=== PATIENT | female | born 1990 | race Two or more races ===

== ENCOUNTER 2023-05-28 18:02 | Emergency (ER) | payer OTHER ==
[~2023-05-28] VITALS: Ht 162.6 cm; Wt 80.7 kg
[2023-05-28 19:27] LABS: HEMATOCRIT 33.6 % (36.0-45.00); HEMOGLOBIN 11.4 g/dL (12.0-15.00); MEAN CELL VOLUME 80.3 fL (80.00-100.00); MEAN CORPUSCULAR HEMOGLOBIN 27.3 pg (27.00-32.0); PLATELET COUNT 233 K/uL (150-450); RED BLOOD COUNT 4.18 M/uL (4.00-6.00); RED CELL DISTRIBUTION WIDTH 13.9 % (11.5-14.5)
[2023-05-28 20:42] LABS: PH,URINE 6.5 (5.0-8.0); URINE APPEARANCE Clear; URINE BILIRRUBIN Negative (NEGATIVE); URINE BLOOD Negative; URINE COLOR Yellow; URINE GLUCOSE Negative (NEGATIVE); URINE LEUKOCYTE Negative; URINE NITRATE Negative; URINE PROTEIN Negative (NEGATIVE); URINE UROBILINOGEN 0.2 E.U./dl
[2023-05-28 20:45] LABS: URINE BACTERIA 41.5 uL (0.0-1933); URINE EPITHELIAL CELLS 2.6 uL (0.0-38.8); URINE RBC 11.7 uL (0.0-20.8)
== END 2023-05-28 23:02 | disposition home or self-care (01) ==
LOC: ER 18:04
PROVIDERS: Emergency Medicine
DX: O20.8 Other hemorrhage in early pregnancy (principal); Z3A.01 Less than 8 weeks gestation of pregnancy

== ENCOUNTER 2023-06-12 08:34 | Emergency (ER) | payer OTHER ==
[~2023-06-12] VITALS: Ht 160 cm; Wt 78.5 kg
[2023-06-12] MEDS ORDERED: 0.9 % SODIUM CHLORIDE 1,000 ML IV STA (09:40)
[2023-06-12] MEDS ORDERED: RINGERS SOLUTION,LACTATED 1,000 ML IV SCH (10:00)
[2023-06-12 10:04] LABS: HEMATOCRIT 35.2 % (36.0-45.00); HEMOGLOBIN 11.9 g/dL (12.0-15.00); MEAN CORPUSCULAR HEMOGLOBIN 27.6 pg (27.00-32.0); MEAN CORPUSCULAR HGB CONC 33.7 g/dl (32.0-36.0); PLATELET COUNT 219 K/uL (150-450)
[2023-06-12 10:36] LABS: CALCIUM 9.1 mg/dL (8.5-10.1); CREATININE SERUM 0.62 mg/dL (0.55-1.02); GFR 110.19; POTASSIUM 3.58 mEq/L (3.5-5.1)
[2023-06-12 10:49] LABS: PH,URINE 7.5 (5.0-8.0); URINE APPEARANCE Cloudy; URINE BILIRRUBIN Negative (NEGATIVE); URINE BLOOD Negative; URINE COLOR Yellow; URINE GLUCOSE Negative (NEGATIVE); URINE LEUKOCYTE Negative; URINE NITRATE Negative; URINE PROTEIN Negative (NEGATIVE); URINE UROBILINOGEN 0.2 E.U./dl
[2023-06-12 10:53] LABS: URINE BACTERIA 88.1 uL (0.0-1933); URINE EPITHELIAL CELLS 2.9 uL (0.0-38.8); URINE RBC 8.4 uL (0.0-20.8); URINE WBC 2.7 uL (0.0-23.2)
[2023-06-12 11:19] LABS: INR 0.96; PARTIAL THROMBOPLASTIN TIME 27.1 SECONDS (22.0-34.0); PROTHROMBIN TIME 10.1 SECONDS (9.0-11.5)
== END 2023-06-12 13:06 | disposition home or self-care (01) ==
LOC: ER 08:34
PROVIDERS: General Practice
DX: O20.8 Other hemorrhage in early pregnancy (principal); Z3A.09 9 weeks gestation of pregnancy

== ENCOUNTER → 2023-07-02 | Outpatient (CLI) | payer OTHER | END | disposition home or self-care (01) | LOC: PRENATAL 11:20 | PROVIDERS: ATTEND Obstetrics & Gynecology Maternal & Fetal Medicine | DX: O36.80X0 Pregnancy with inconclusive fetal viability, not applicable or unspecified (principal); O09.529 Supervision of elderly multigravida, unspecified trimester; O34.219 Maternal care for unspecified type scar from previous cesarean delivery; Z36.82 Encounter for antenatal screening for nuchal translucency; Z3A.12 12 weeks gestation of pregnancy ==

== ENCOUNTER 2023-09-29 14:10 | Outpatient (CLI) | payer OTHER ==
[~2023-09-29] VITALS: Ht 160 cm; Wt 81.2 kg
[2023-09-29] MEDS ORDERED: RINGERS SOLUTION,LACTATED 1,000 ML IV SCH (14:15)
[2023-09-29] MEDS ORDERED: PRENATAL TABLE1 EAC4 PO (14:19)
[2023-09-29 14:42] LABS: PH,URINE 6.5 (5.0-8.0); URINE APPEARANCE Clear; URINE BILIRRUBIN Negative (NEGATIVE); URINE BLOOD Negative; URINE COLOR Yellow; URINE GLUCOSE Negative (NEGATIVE); URINE LEUKOCYTE Negative; URINE NITRATE Negative; URINE PROTEIN Negative (NEGATIVE)
[2023-09-29 14:46] LABS: HEMATOCRIT 30.5 % (36.0-45.00); HEMOGLOBIN 10.4 g/dL (12.0-15.00); MEAN CELL VOLUME 81.3 fL (80.00-100.00); MEAN CORPUSCULAR HEMOGLOBIN 27.7 pg (27.00-32.0); MEAN CORPUSCULAR HGB CONC 34.1 g/dl (32.0-36.0); PLATELET COUNT 203 K/uL (150-450); RED BLOOD COUNT 3.76 M/uL (4.00-6.00); RED CELL DISTRIBUTION WIDTH 14.9 % (11.5-14.5); URINE BACTERIA 50.3 uL (0.0-1933); URINE EPITHELIAL CELLS 10.3 uL (0.0-38.8); URINE RBC 2.2 uL (0.0-20.8); URINE WBC 9.5 uL (0.0-23.2)
== END 2023-09-30 14:17 | disposition home or self-care (01) ==
LOC: OBS/DEL 14:10
PROVIDERS: Obstetrics & Gynecology; ATTEND Obstetrics & Gynecology
DX: O46.92 Antepartum hemorrhage, unspecified, second trimester (principal); Z3A.25 25 weeks gestation of pregnancy; O26.849 Uterine size-date discrepancy, unspecified trimester; O09.529 Supervision of elderly multigravida, unspecified trimester; O60.00 Preterm labor without delivery, unspecified trimester; O26.859 Spotting complicating pregnancy, unspecified trimester

== ENCOUNTER 2023-11-21 10:33 | Outpatient (CLI) | payer OTHER ==
[~2023-11-21 10:33] MED LIST: PRENATAL TABLE1 EAC4 PO
== END 2023-11-21 10:34 | disposition home or self-care (01) ==
LOC: PRENATAL 10:33
PROVIDERS: ATTEND Obstetrics & Gynecology Maternal & Fetal Medicine
DX: O26.843 Uterine size-date discrepancy, third trimester (principal); O36.8130 Decreased fetal movements, third trimester, not applicable or unspecified; O09.523 Supervision of elderly multigravida, third trimester; O34.219 Maternal care for unspecified type scar from previous cesarean delivery; O99.019 Anemia complicating pregnancy, unspecified trimester; Z3A.32 32 weeks gestation of pregnancy

== ENCOUNTER 2023-12-20 20:50 | Outpatient (CLI) | payer OTHER ==
[2023-12-20 21:33] LABS: HEMATOCRIT 30.5 % (36.0-45.00); HEMOGLOBIN 10.3 g/dL (12.0-15.00); MEAN CELL VOLUME 80.4 fL (80.00-100.00); MEAN CORPUSCULAR HEMOGLOBIN 27.2 pg (27.00-32.0); MEAN CORPUSCULAR HGB CONC 33.8 g/dl (32.0-36.0); PLATELET COUNT 189 K/uL (150-450); RED BLOOD COUNT 3.79 M/uL (4.00-6.00); RED CELL DISTRIBUTION WIDTH 16.2 % (11.5-14.5)
[2023-12-20 21:34] LABS: URINE APPEARANCE Clear; URINE BACTERIA 124.6 uL (0.0-1933); URINE BILIRRUBIN Negative (NEGATIVE); URINE BLOOD NHT; URINE COLOR Yellow; URINE EPITHELIAL CELLS 7.3 uL (0.0-38.8); URINE GLUCOSE Negative (NEGATIVE); URINE KETONE Negative (NEGATIVE); URINE LEUKOCYTE Negative; URINE NITRATE Negative; URINE PROTEIN Negative (NEGATIVE); URINE RBC 49.6 uL (0.0-20.8); URINE UROBILINOGEN 0.2 E.U./dl; URINE WBC 6.6 uL (0.0-23.2)
[2023-12-20 21:56] LABS: INR < 0.93; PARTIAL THROMBOPLASTIN TIME 24.4 SECONDS (22.0-34.0)
[2023-12-20] MEDS ORDERED: RINGERS SOLUTION,LACTATED 1,000 ML IV SCH (23:15)
[2023-12-20] MEDS ORDERED: IRON 100 PLUS1 EACH PO (23:37)
[2023-12-20] MEDS ORDERED: AMPICILLIN SODIU1 G1 IV (23:37)
== END 2023-12-21 09:28 | disposition home or self-care (01) ==
LOC: OBS/DEL 20:50
PROVIDERS: Obstetrics & Gynecology; ATTEND Obstetrics & Gynecology
DX: O98.813 Other maternal infectious and parasitic diseases complicating pregnancy, third trimester (principal); Z3A.36 36 weeks gestation of pregnancy

== ENCOUNTER 2023-12-25 09:05 | Inpatient (IN) | payer OTHER ==
[~2023-12-25] VITALS: Ht 160 cm; Wt 2.7 kg
[~2023-12-25 09:05] MED LIST changes: +AMPICILLIN SODIU1 G1 IV; +IRON 100 PLUS1 EACH PO
[2023-12-25 10:34] LABS: URINE APPEARANCE Clear; URINE BILIRRUBIN Negative (NEGATIVE); URINE BLOOD NHT; URINE COLOR Yellow; URINE GLUCOSE Negative (NEGATIVE); URINE KETONE Negative (NEGATIVE); URINE LEUKOCYTE Negative; URINE NITRATE Negative; URINE PROTEIN Negative (NEGATIVE); URINE UROBILINOGEN 0.2 E.U./dl
[2023-12-25 10:44] LABS: URINE BACTERIA 12.5 uL (0.0-1933); URINE EPITHELIAL CELLS 11.5 uL (0.0-38.8); URINE RBC 45.3 uL (0.0-20.8); URINE WBC 2.3 uL (0.0-23.2)
[2023-12-25 10:53] LABS: HEMATOCRIT 33.5 % (36.0-45.00); HEMOGLOBIN 11.1 g/dL (12.0-15.00); MEAN CELL VOLUME 81.6 fL (80.00-100.00); MEAN CORPUSCULAR HEMOGLOBIN 27.1 pg (27.00-32.0); MEAN CORPUSCULAR HGB CONC 33.2 g/dl (32.0-36.0); PLATELET COUNT 183 K/uL (150-450); RED CELL DISTRIBUTION WIDTH 16.1 % (11.5-14.5)
[2023-12-25 11:26] LABS: INR < 0.93; PARTIAL THROMBOPLASTIN TIME 25.1 SECONDS (22.0-34.0)
[2023-12-25 11:29] LABS: CALCIUM 8.9 mg/dL (8.5-10.1); CREATININE SERUM 0.49 mg/dL (0.55-1.02); GFR 143.72; POTASSIUM 4.49 mEq/L (3.5-5.1)
[2024-01-03 10:36] VITALS: BP 98/61
[2024-01-03] MEDS ORDERED: RINGERS SOLUTION,LACTATED 1,000 ML IV SCH ×2 (11:15→21:30)
[2024-01-03 11:56] LABS: HEMATOCRIT 32.2 % (36.0-45.00); HEMOGLOBIN 10.9 g/dL (12.0-15.00); MEAN CELL VOLUME 81.1 fL (80.00-100.00); MEAN CORPUSCULAR HEMOGLOBIN 27.4 pg (27.00-32.0); MEAN CORPUSCULAR HGB CONC 33.7 g/dl (32.0-36.0); PLATELET COUNT 175 K/uL (150-450); RED BLOOD COUNT 3.97 M/uL (4.00-6.00); RED CELL DISTRIBUTION WIDTH 16.4 % (11.5-14.5)
[2024-01-03 11:58] LABS: PH,URINE 6.5 (5.0-8.0); URINE APPEARANCE Clear; URINE BILIRRUBIN Negative (NEGATIVE); URINE BLOOD Negative; URINE COLOR Yellow; URINE GLUCOSE Negative (NEGATIVE); URINE KETONE Negative (NEGATIVE); URINE LEUKOCYTE Negative; URINE NITRATE Negative; URINE PROTEIN Negative (NEGATIVE); URINE UROBILINOGEN 0.2 E.U./dl
[2024-01-03 12:00] LABS: URINE BACTERIA 1481.7 uL (0.0-1933); URINE EPITHELIAL CELLS 21.6 uL (0.0-38.8); URINE RBC 3.2 uL (0.0-20.8); URINE WBC 6.7 uL (0.0-23.2)
[2024-01-03 12:20] LABS: INR < 0.93; PARTIAL THROMBOPLASTIN TIME 24.9 SECONDS (22.0-34.0)
[2024-01-03 12:26] LABS: ALBUMIN 2.6 gm/dL (3.4-5.0); BILIRUBIN TOTAL 0.34 mg/dL (0.3-1.2); CALCIUM 8.8 mg/dL (8.5-10.1); CREATININE SERUM 0.49 mg/dL (0.55-1.02); GFR 143.72; GLOBULINA 3.7 G/DL (2.4-3.5); POTASSIUM 4.03 mEq/L (3.5-5.1); TOTAL PROTEIN 6.3 gm/dL (6.4-8.2)
[2024-01-03 16:55] VITALS: BP 105/69
[2024-01-03] MEDS ORDERED: ERYTHROMYCIN BASE OPHT 1GM EACH TUBE OP ONE (17:35)
[2024-01-03] MEDS ORDERED: OXYTOCIN 10 UNITS/ML VIAL ONE ×2 (17:35→21:21)
[2024-01-03] MEDS ORDERED: CEFAZOLIN SODIUM 1,000 MG VIAL ONE (19:39)
[2024-01-03] MEDS ORDERED: KETOROLAC TROMETHAMINE 30 MG VIAL ONE (20:54)
[2024-01-03] MEDS ORDERED: MORPHINE SULFATE 4 MG/ML VIAL IV PRN (21:15)
[2024-01-03] MEDS ORDERED: OXYTOCIN 1,000 ML IV SCH (21:30)
[2024-01-03] MEDS ORDERED: KETOROLAC TROMETHAMINE 30 MG VIAL IU ONE (21:30)
[2024-01-03 22:10] VITALS: BP 99/67
[2024-01-03 23:08] LABS: HEMATOCRIT 32.5 % (36.0-45.00); HEMOGLOBIN 11.1 g/dL (12.0-15.00); MEAN CELL VOLUME 80.3 fL (80.00-100.00); MEAN CORPUSCULAR HEMOGLOBIN 27.4 pg (27.00-32.0); MEAN CORPUSCULAR HGB CONC 34.1 g/dl (32.0-36.0); PLATELET COUNT 160 K/uL (150-450); RED BLOOD COUNT 4.05 M/uL (4.00-6.00); RED CELL DISTRIBUTION WIDTH 16.4 % (11.5-14.5)
[2024-01-04 02:21] VITALS: BP 106/71
[2024-01-04 06:21] VITALS: BP 100/67
[2024-01-04 08:00] VITALS: BP 104/70
[2024-01-04] MEDS ORDERED: DOCUSATE SODIUM 100MG CAP PO SCH (09:00)
[2024-01-04] MEDS ORDERED: IBUprofen 400 MG TABLET PO PRN (09:00)
[2024-01-04] MEDS ORDERED: IBUprofen 800 MG TABLET PO PRN (11:30)
[2024-01-04 16:00] VITALS: BP 103/69
[2024-01-04] MEDS ORDERED: KETOROLAC TROMETHAMINE 30 MG VIAL IM NR (17:00)
[2024-01-04 22:00] VITALS: BP 101/64
[2024-01-05 02:02] VITALS: BP 101/65
[2024-01-05 10:01] VITALS: BP 99/65
[2024-01-05 17:00] VITALS: BP 101/68
[2024-01-06 01:39] VITALS: BP 104/71
== END 2024-01-06 11:53 | disposition home or self-care (01) | DRG 785 ==
LOC: OB/GYN 01-03 10:54 → LDR 01-03 10:54 → O/R 01-03 20:14 → OB/GYN 01-03 20:33
PROVIDERS: ADMIT Obstetrics & Gynecology; ATTEND Obstetrics & Gynecology
PROC: 0UB70ZZ Excision of Bilateral Fallopian Tubes, Open Approach (ICD-10-PCS; 2024-01-03)
PROC: 4A1HXCZ Monitoring of Products of Conception, Cardiac Rate, External Approach (ICD-10-PCS; 2024-01-03)
PROC: 10D00Z1 Extraction of Products of Conception, Low, Open Approach (ICD-10-PCS; principal; 2024-01-03 17:30)
DX: O41.03X0 Oligohydramnios, third trimester, not applicable or unspecified (principal); O99.824 Streptococcus B carrier state complicating childbirth; Z3A.38 38 weeks gestation of pregnancy; Z37.0 Single live birth; Z20.822 Contact with and (suspected) exposure to COVID-19; Z30.2 Encounter for sterilization